=== PATIENT | male | born 1945 | race Caucasian/White ===

== ENCOUNTER 2017-12-30 09:42 | Day surgery (SDC) | payer MEDICARE ==
[2017-12-30] VITALS (10 sets, daily range): BP systolic 76–139; BP diastolic 50–85
[~2017-12-30] VITALS: Ht 182.9 cm; Wt 107.0 kg
[~2017-12-30 09:42] MED LIST: ALPRAZOLAM0.25 M1 PO; AMLODIPINE; ATORVASTATIN CA10 MG PO; DOXAZOSIN4 M1 PO; ELIQUIS5 MG PO; GLUCOSAMI12 PO; METOPROLOL SUCC50 MG PO; PROPAFENONE HC325 MG PO; VITAMIN C500 M6 PO; ZESTRIL10 M1 PO; ZINC; [UNRECOGNIZED DRUG - OTHER]
[2017-12-30] MEDS ORDERED: METOPROL TAR25 MG PO (09:57)
[2017-12-31] VITALS: BP 79/55
[2017-12-31 06:01] LABS: IMMATURE GRANULOCYTES 0.6 % (0.0-5.0); MEAN CELL VOLUME 97.2 fL CALC (80.0-100.0); MEAN CORPUSCULAR HGB 32.3 pG CALC (26.0-32.0); MEAN CORPUSCULAR HGB CONC 33.2 g/L CALC (32.0-36.0); NEUT# 4.38 thou/uL (1.82-7.42); RED BLOOD COUNT 3.53 mill/uL (4.70-6.10); RED CELL DISTRI WIDTH 12.8 % (11.5-15.5)
[2017-12-31 06:02] LABS: HEMATOCRIT 34.3 % (39.0-50.0); HEMOGLOBIN 11.4 g/dl (14.0-18.0)
[2017-12-31 06:15] LABS: ALKALINE PHOSPHATASE 36 u/l (38-126); ANION GAP 10 (6-22 (CALC)); BILIRUBIN, TOTAL 0.8 mg/dL (0.0-1.4); BUN 16 mg/dL (8-23); BUN/CREATININE RATIO 22 (12-20 (CALC)); CARBON DIOXIDE 29 mmol/l (22-30); CHLORIDE 98 mmol/l (95-108); CREATININE 0.7 mg/dL (0.7-1.3); GFR > 60 ML/MIN (>=60 (CALC)); GFR FOR AFR.AMER. > 60 ML/MIN (>=60 (CALC)); MAGNESIUM 1.8 mg/dL (1.6-2.3); POTASSIUM 4.7 mmol/l (3.5-5.1); SGOT/AST 14 u/l (19-48); SGPT/ALT 28 u/l (11-66); SODIUM 133 mmol/l (137-146)
[2017-12-31 06:22] LABS: TOTAL PROTEIN 4.8 g/dL (6.3-8.2)
[2017-12-31 06:23] LABS: ALBUMIN 2.8 g/dL (3.2-5.0)
[2017-12-31] MEDS ORDERED: BACTRIM DS1 TAB PO (07:07)
[2017-12-31] MEDS ORDERED: OXYBUTYNIN5 MG PO (07:08)
[2017-12-31] MEDS ORDERED: TORADOL PO (07:08)
[2017-12-31] MEDS ORDERED: AZO TABS95 MG PO (07:09)
[2017-12-31 07:34] VITALS: BP 94/60
[2017-12-31 07:59] VITALS: BP 102/50
[2017-12-31 09:58] VITALS: BP 102/50
== END 2017-12-31 13:18 | disposition home health service (06) ==
LOC: ORM 09:42 → MS2 09:42 → ORM 10:00 → MS2 12:55 → ORM 12-31 13:18
PROVIDERS: ATTEND Urology
PROC: 0V508ZZ Destruction of Prostate, Via Natural or Artificial Opening Endoscopic (ICD-10-PCS; principal; 2017-12-30)
DX: N40.1 Benign prostatic hyperplasia with lower urinary tract symptoms (principal); R35.0 Frequency of micturition; R39.12 Poor urinary stream; R97.20 Elevated prostate specific antigen [PSA]; I48.0 Paroxysmal atrial fibrillation; I25.10 Atherosclerotic heart disease of native coronary artery without angina pectoris; I10 Essential (primary) hypertension; E78.5 Hyperlipidemia, unspecified; G47.33 Obstructive sleep apnea (adult) (pediatric); F17.210 Nicotine dependence, cigarettes, uncomplicated; Z79.899 Other long term (current) drug therapy; Z86.73 Personal history of transient ischemic attack (TIA), and cerebral infarction without residual deficits